=== PATIENT | male | born 2000 | race Two or more races ===

== ENCOUNTER 2021-12-04 22:20 | Emergency (ER) | payer OTHER ==
[~2021-12-04] VITALS: Ht 165.1 cm; Wt 70.0 kg
[2021-12-05] MEDS ORDERED: ipratropium/albuterol 3ml nebule NEB ONE (01:45)
[2021-12-05] MEDS ORDERED: ALBU8HFA PO (02:53)
[2021-12-05 03:01] VITALS: BP 104/63
== END 2021-12-05 03:04 | disposition home or self-care (01) ==
LOC: ER 22:22
DX: R06.02 Shortness of breath (principal)
CPT/HCPCS: 71045; 94640; 94760; 99283